=== PATIENT | female | born 1955 | race African-American/Black ===

== ENCOUNTER 2017-11-19 00:55 | Inpatient (IN) | payer MEDICAID ==
[~2017-11-19] VITALS: Ht 161.3 cm; Wt 84.2 kg
--- NOTE | ~2017-11-19 | WRIGHTHP ---
[place], [place] PATIENT HISTORY AND PHYSICAL EXAM [id number] UNIT #: [id number] ROOM: 311 DOCTOR: ELOISA HARDY MD BIRTHDATE: [birth year] DOS: 11/19/2017 CHIEF COMPLAINT: "Oh Dr. Hardy, things were just really bad there." SUMMARY OF THE VISIT: This is a 62-year-old black female who is a resident of [facility]. The patient has a lengthy history of schizophrenia. Most recently, she was seen at the facility and had her Seroquel discontinued in lieu of Risperdal because of worsening mood lability and psychosis. Following this change, she continued to decompensate. She has become increasingly delusional and paranoid. She believes that people there are out to get her. She has made significant threats herself that she will hurt other people. There is also some concern that she is deliberately attempting to get to the hospital to get to another female resident at that facility that is also admitted to the hospital here. She has become so labile and so out of control that the staff there feared for her safety and the safety of others. She was admitted now to rule out organic factors, to stabilize on medication, to engage in individual and borden milieu activity with the ultimate plan to return back to [facility] or the least restrictive environment when psychiatrically stable. PAST MEDICAL HISTORY: Remarkable for allergies to CODEINE, PENICILLIN, and SULFA. MENTAL STATUS: The patient is alert and oriented to person, place and very approximate to time. Mood is very labile. She is nearly pressured. She is interruptible but she does tend to be very circumstantial if not frankly tangential in her thinking. She requires a great deal of redirection to keep her on target. She is grossly delusional and paranoid. Memory for the most part is intact with some significant time gaps. DIAGNOSIS: Schizoaffective disorder. PLAN: I have discontinued her Risperdal in lieu of Invega. After I know she has tolerated this well, I will load her with Invega Sustenna hoping to improve compliance and lessen the potential for side effects. Her serum ammonia level upon admission was mildly elevated at 50. I will start her on lactulose 20 grams twice a day and recheck a level in a few days, attempt to engage in individual and borden milieu activity with the plan then to return to [facility] or the least restrictive environment when stable. [place], [place] PATIENT HISTORY AND PHYSICAL EXAM NAME: CLIFF BENSON UNIT #: [id number] ROOM: 311 DOCTOR: ELOISA HARDY MD BIRTHDATE: [birth year] ELOISA HARDY MD CM:HISPHYS:PATIENT HISTORY AND PHYSICAL EXAMINATION 8 1 ELOISA HARDY MD 11/19/17831 interface
--- NOTE | ~2017-11-19 | PR ---
[place], [place] PROGRESS NOTE [id number] #: [id number] ROOM: 317 DOCTOR: Nanette MCCAULEY,FLORENCIA BIRTHDATE: [birth year] DOS: 11/25/2017 PSYCHIATRIC PROGRESS NOTE SUBJECTIVE: Patient seen and spoke with the staff. Per staff, patient was up all night, internally stimulated, paranoid, wants multiple outfits to put on. Patient was pleasant and cooperative. She was in her room. She was talking to herself. When I asked her how she is doing, she says that she is doing well. She also then went on to talk about the fact that her son told her not to fuss or curse at the staff. She said that she is not going to do that anymore. She is taking her medication regularly and denied any side effect from the medication also. MENTAL STATUS EXAMINATION: Pleasant, cooperative. Described her mood as "fine." Affect, mood congruent, broad. Thought process disorganized at times. She denied auditory or visual hallucination, but seems responding to stimuli. She is delusional, paranoid. She denies suicidal ideation, intent or plan. She also denied homicidal ideation, intent or plan. Insight and judgment impaired. ASSESSMENT: 1. Schizophrenia, chronic, paranoid type. 2. Rule out schizoaffective disorder. PLAN: 1. Continue current medication and care. 2. Continue redirection. 3. Encourage activity and groups. 4. Final medication management and discharge plan by the regular team. FLORENCIA MCCAULEY MD CM:PNVERO 29 [phone] Nanette MCCAULEY 11/25/17 2328 interface
--- NOTE | ~2017-11-19 | PR ---
[place], [place] PROGRESS NOTE NAME: CLIFF BENSON UNIT #: [id number] ROOM: 311 DOCTOR: ELOISA TROTTER MD BIRTHDATE: [birth year] DOS: 11/20/2017 CHIEF COMPLAINT: "Come here and sit with me after I say my prayer." SUMMARY OF THE VISIT: The patient was interviewed first in the hallway and then she let us her wheelchair into the dining area where she sat and had a conversation with myself and the medical student that was rounding with me. The patient continues to be intrusive and rather loud. She is nearly pressured, but she is interruptible. She does tend to be somewhat tangential in her thinking and flips from topic to topic. She was pleasant, however, and did not engage in any type of agitation, profanity, streams of conversation or anything negative in that regard. She does report tolerating her current medication regimen well and notes no side effects. MENTAL STATUS: She is alert and oriented with some mild time gaps. Mood does seem to be trending towards euthymia. Affect is much more appropriate. There is no jannette, but there is jazzy hypomania. There are no overt auditory or visual hallucinations. Short-term memory has mild gaps. PLAN: Her valproic acid level is therapeutic at 86.2, so I will maintain her current Depakote dosing. She is tolerating the Invega well and in the past has tolerated Risperdal well without any incident. I will therefore attempt to load her with Invega Sustenna to go with the Haldol Decanoate so that she does not have to take oral meds in the future. This should greatly improve compliance and lessen the potential for side effects. We will engage in individual and borden milieu activity with the ultimate plan to return to [facility] when psychiatrically stable. ELOISA TROTTER MD CM:PNTRANS [id number] ELOISA TROTTER MD 11/20/17 0849 interface
--- NOTE | ~2017-11-19 | PR ---
[place], [place] PROGRESS NOTE [id number] UN[facility] #: [id number] ROOM: 317 DOCTOR: Nanette MCCAULEY,FLORENCIA BIRTHDATE: [birth year] DOS: 11/24/2017 SUBJECTIVE: The patient seen and spoke with the staff. Per staff, the patient is still delusional and paranoid. Takes her medication regularly, very talkative, but easily redirectable. The patient was pleasant and cooperative. She said that she is doing well. She talked about her desire to go home. She then went to her room and started showing me cream that she uses for her feet. She denied any side effect from the medication. She denied being depressed, hopeless or helpless. She reported good sleep and appetite. MENTAL STATUS EXAMINATION: The patient was pleasant and cooperative. Described her mood as "fine." Affect, mood congruent, labile. Thought process, goal directed with some flight of ideas, loosening of association. She denied auditory or visual hallucination. She is still delusional or paranoid. She denied suicidal ideation, intent or plan. She also denied homicidal ideation, intent or plan. Insight and judgment impaired. ASSESSMENT: 1. Schizophrenia, chronic paranoid type. 2. Rule out schizoaffective disorder. PLAN: 1. Continue current medication and care. 2. Encourage activity and groups. 3. Continue redirection and supportive care. FLORENCIA MCCAULEY MD CM:BROOKLYN [phone] Nanette MCCAULEY 11/24/17 2348 interface
--- NOTE | ~2017-11-19 | CON ---
[place], [place] REPORT OF CONSULTATION NAME: CLIFF BENSON UNIT #: [id number] ROOM: 311 DOCTOR: KATTY ORTEGA ED.D (MIRIAN) BIRTHDATE: [birth year] DOS: 11/19/2017 HISTORY OF PRESENT ILLNESS: The patient is a 62-year-old female referred by Dr. Trotter for competency evaluation. At the present time, this patient is on the [facility] at [facility]. She is and has 6 children. Several of her sons are quite helpful and do frequently visit her at [facility] in [place], [place] where the patient resides. She has lived at [facility] for quite some time. Her family physician is Dr. Robin and her medical history is pertinent for paranoid schizophrenia, diabetes mellitus, hypertension, osteoporosis. Her medications include Invega, lactulose, simvastatin, insulin, metformin, losartan, hydrochlorothiazide and Depakote. She does smoke, but otherwise denies any significant substance abuse issues. This patient was awake, alert and oriented to person, place and time. She indicated she is at [facility] and stated it is 11/19/2017. She knew Andrew Jiang is the vice president quality improvement and had no difficulty with current events whatsoever. Her short and long-term memory appear to be relatively intact. She did become quite agitated at [facility] and was pink slipped to [facility] for psychiatric care. She is doing better at this time, but she is still somewhat delusional. She does decompensate at times and does have to be rehospitalized. Since she is under a pink slip, there is a 72-hour hold on this patient and hopefully she will be psychiatrically stable at that time and can be transferred back to the long-term care facility. If not and it is necessary, I will do a guardianship at that time, but at the present time, the facility stated she does not have difficulty making medical decisions most of the time, other than when she decompensates psychiatrically. I did suggest that she would benefit from having a power of personal injury attorney for healthcare, but the training development director at [facility], Efren, indicated she was reluctant to give her sons power of personal injury attorney because she is somewhat paranoid. I will contact hospital again on Sunday of this week to determine whether or not she does need a guardianship at that time. At the present time, I would recommend against it. I did discuss this at length with Dr. Trotter and also with nursing services on the Behavioral Health Unit. DIAGNOSIS: Paranoid schizophrenia -- paranoid type. RECOMMENDATIONS: In my opinion, this patient does not need a guardianship at this time; however, her if her condition does not improve, guardianship may be necessary. Thank you very much for this consult. [place], [place] REPORT OF CONSULTATION NAME: CLIFF BENSON UNIT #: [id number] ROOM: [facility] DOCTOR: KATTY ORTEGA ED.D (MIRIAN) BIRTHDATE: [birth year] KATTY ORTEGA ED.D CM:CONSTR:REPORT OF CONSULTATION 1645 11/19/17 2254 interface ELOISA TROTTER MD
--- NOTE | ~2017-11-19 | DS ---
[place], [place] DISCHARGE SUMMARY [id number] UNIT #: [id number] ROOM: 317 DOCTOR: ELOISA HARDY MD BIRTHDATE: [birth year] DOS: 11/26/2017 CHIEF COMPLAINT: "Oh, Dr. Hardy, things were just really bad there." HISTORY OF PRESENT ILLNESS: This is a 62-year-old black female who is a resident of [facility]. The patient has a very lengthy history of schizophrenia. Most recently, she was seen at the facility and her Seroquel was discontinued in lieu of Risperdal because of worsening mood lability and psychosis. Following this change, she continued to decompensate and has become increasingly delusional and paranoid. She believes that people that are there are trying to get at her. She has made significant threats to hurt others before they hurt her. Because her mood was so labile and she was such a significant risk to harm self and others, she was admitted to the U to further rule out organic factors, to stabilize on medication, to engage in individual and borden milieu activity, returning back to [facility] when stable. PAST MEDICAL HISTORY: Remarkable for allergies to CODEINE, PENICILLIN AND SULFA. SUMMARY OF HOSPITAL COURSE: The patient was admitted to the unit where she was continued on Risperdal briefly, which was then switched over to Invega. Her serum ammonia was mildly elevated upon admission at 50, so lactulose 20 grams twice daily was started and gradually increased. Depakote and lithium were both utilized simultaneously to act as a mood stabilizer. She was very hyperverbal and intrusive from the start. These did seem to impact positively on her mood stability, as she became much more redirectable and able to engage in reasonable conversation that was neither pressured, nor circumstantial. She tolerated the addition of the Invega, the lithium and the Depakote well, exhibiting no sedation, somnolence, EPS or tardive dyskinesia. She had improved sufficiently to return back to [facility] where I will follow her upon her readmission there. MENTAL STATUS AT DISCHARGE: The patient is alert and oriented. Mood does seem to be still somewhat labile, but this is a baseline for her. There is no symptom suggestive of depression. There is no jazzy jannette. There was no gross psychosis. For the most part memory was intact. FINAL DIAGNOSIS: Schizoaffective disorder. DISPOSITION: The patient will return to [facility]. I will follow her psychiatrically upon her admission there. All of her prescriptions have been e scribed to [facility], which is an institutional pharmacy. [place], [place] DISCHARGE SUMMARY NAME: CLIFF BENSON UNIT #: [id number] ROOM: 317 DOCTOR: ELOISA HARDY MD BIRTHDATE: [birth year] ELOISA HARDY MD CM:DISCHCANDY 0948 1005 ELOISA HARDY MD 11/26/17 1004 interface
[2017-11-19] MEDS ORDERED: HALDOL DEC100 MG/1 M IM (01:08)
[2017-11-19] MEDS ORDERED: DEPAKOTE ER500 MG PO (01:09)
[2017-11-19] MEDS ORDERED: RISPERDAL1 M1 PO (01:10)
[2017-11-19] MEDS ORDERED: RISPERDAL2 M1 PO (01:11)
[2017-11-19] MEDS ORDERED: LANTUS SOL100 UNIT/1 SQ ×2 (01:16)
[2017-11-19] MEDS ORDERED: DAILY VITAMIN1 EAC1 PO (01:26)
[2017-11-19] MEDS ORDERED: ZOCOR10 MG PO (01:27)
[2017-11-19] MEDS ORDERED: LOSARTAN POTASS50 M1 PO (01:28)
[2017-11-19] MEDS ORDERED: HYDROCHLOROTHIA25 M1 PO (01:30)
[2017-11-19] MEDS ORDERED: CALCIUM500 M1 PO (01:31)
[2017-11-19] MEDS ORDERED: FEROSUL325 MG PO (01:32)
[2017-11-19] MEDS ORDERED: LACTULOSE10 GM/151 PO (01:32)
[2017-11-19] MEDS ORDERED: METFORMIN1000 MG PO (01:33)
[2017-11-19] MEDS ORDERED: GERI-TUSSI100 MG/5 M PO (01:37)
[2017-11-19] MEDS ORDERED: TRAMADOL HCL50 MG PO (01:38)
[2017-11-19 03:36] VITALS: BP 159/80
[2017-11-19 04:40] LABS: BILIRUBIN NEGATIVE (NEGATIVE); BLOOD NEGATIVE (NEGATIVE); CLARITY CLEAR (CLEAR); COLOR YELLOW (YELLOW); GLUCOSE NEGATIVE (NEGATIVE); KETONE NEGATIVE (NEGATIVE); LEUKO ESTERASE NEGATIVE (NEGATIVE); NITRITE NEGATIVE (NEGATIVE); SPECIFIC GRAVITY <= 1.005 (1.005-1.030); UROBILINOGEN 0.2 E.U./dl (0.2-1.0)
[2017-11-19 05:28] LABS: WBC 0-2 wbc/hpf (0-5)
[2017-11-19 07:39] LABS: BASO % 0.3 % (0.0-1.0); EOS # 0.1 10*3/uL (0.0-0.4); EOS % 0.7 % (1.0-4.0); HEMOGLOBIN 11.6 g/dl (12.0-16.0); LYMPH # 4.4 10*3/uL (1.3-4.4); LYMPH % 49.7 % (27.0-41.0); MEAN CELL VOLUME 76.1 fl (81.0-99.0); MEAN CORPUSCULAR HGB 24.5 pg (27.0-31.0); MEAN CORPUSCULAR HGB CONC 32.2 g/dl (33.0-37.0); MEAN PLATELET VOLUME 10.9 fl (9.6-12.3); MONO # 0.7 10*3/uL (0.1-1.0); MONO % 8.3 % (3.0-9.0); NEUT # 3.6 10*3/uL (2.3-7.9); NEUT % 40.7 % (47.0-73.0); PLATELET COUNT AUTOMATED 201 10*3/uL (130-400); RED BLOOD COUNT 4.73 10*6/uL (4.10-5.10); RED CELL DISTRI WIDTH 16.1 % (0-14.5); WHITE BLOOD COUNT 8.8 10*3/uL (4.8-10.8)
[2017-11-19 08:02] VITALS: BP 120/66
[2017-11-19 08:09] LABS: ALBUMIN 3.3 gm/dl (3.1-4.5); BUN 7 mg/dl (7-24); CHLORIDE 106 mmol/L (98-107); POTASSIUM 3.9 mmol/L (3.5-5.1); SODIUM 142 mmol/L (136-145)
[2017-11-19 08:19] LABS: ALKALINE PHOSPHATASE 71 U/L (45-117); CHOLESTEROL 59 mg/dL (<200); CREATININE 0.95 mg/dL (0.55-1.02); HDL CHOLESTEROL 29 mg/dl (40-60); LDL CHOLESTEROL 15 mg/dL (9-159); SGOT/AST 17 IU/L (3-35); SGPT/ALT 23 U/L (12-78); TOTAL PROTEIN 6.9 gm/dL (6.4-8.2); TRIGLYCERIDES 74 mg/dl (<150); VALPROIC ACID (DEPAKENE) 86.2 ug/ml (50-100); VLDL CHOLESTEROL 15 mg/dL (6-40)
[2017-11-19 10:26] LABS: VITAMIN D, 25-HYDROXY 17.6 ng/mL (30-100)
[2017-11-19 20:00] VITALS: BP 141/70
[2017-11-20 08:42] VITALS: BP 136/70
[2017-11-20 20:13] VITALS: BP 134/63
[2017-11-21 07:55] VITALS: BP 144/80
[2017-11-21 20:00] VITALS: BP 121/65
[2017-11-22 08:02] VITALS: BP 149/61
[2017-11-22 20:45] VITALS: BP 142/73
[2017-11-23 08:05] VITALS: BP 145/72
[2017-11-23 20:00] VITALS: BP 107/61
[2017-11-24 08:12] VITALS: BP 136/82
[2017-11-24 19:58] VITALS: BP 120/62
[2017-11-25 08:06] VITALS: BP 122/80
[2017-11-25 20:00] VITALS: BP 123/62
[2017-11-26 08:12] VITALS: BP 126/60
[2017-11-26] MEDS ORDERED: LACTULOSE20 GM/30 M PO (09:43)
[2017-11-26] MEDS ORDERED: PALIPERIDONE ER6 MG PO (09:43)
[2017-11-26] MEDS ORDERED: LITHIUM CARBON450 M1 PO (09:43)
[2017-11-26] MEDS ORDERED: HALOPERIDO100 MG/1 M IM (09:43)
[2017-11-26] MEDS ORDERED: DIVALPROEX SOD500 MG PO (09:43)
== END 2017-11-26 16:21 | DRG 885 ==
LOC: 3N 00:55
PROVIDERS: Psychiatry & Neurology Psychiatry
DX: F20.0 Paranoid schizophrenia (principal); E11.65 Type 2 diabetes mellitus with hyperglycemia; I10 Essential (primary) hypertension; D50.9 Iron deficiency anemia, unspecified; Z88.0 Allergy status to penicillin; Z88.5 Allergy status to narcotic agent; Z88.2 Allergy status to sulfonamides; Z79.4 Long term (current) use of insulin

== ENCOUNTER 2018-11-19 14:26 | Inpatient (IN) | payer MEDICAID ==
[~2018-11-19] VITALS: Ht 160 cm; Wt 175.0 kg
--- NOTE | ~2018-11-19 | PR ---
[place], [place] PROGRESS NOTE NAME: CLIFF BENSON UNIT #: [id number] ROOM: 312 DOCTOR: ELOISA TROTTER MD BIRTHDATE: [birth year] DOS: 11/25/2018 CHIEF COMPLAINT: "Oh, I had a pretty good weekend, how are you?" SUMMARY OF THE VISIT: The patient was interviewed as she was finishing her breakfast. She reported to me that she had a good weekend, other than not sleeping well last night, because she and her roommate had issues with somebody else in the hallway. She does seem to be tolerating the combination of the Invega Sustenna and Haldol Decanoate well. I do not see sedation or somnolence, nor do I see tardive dyskinesia or extrapyramidal symptoms. Overall, her thinking is much clear and goal directed. There is less rambling and there is also little to no psychotic symptoms. MENTAL STATUS: She is alert and oriented to person, place, not to time. There are gaps here. Mood does seem to be more euthymic. Affect is more appropriate. There is no hypomania or jannette. There are no gross psychotic symptoms. Short term memory does have gaps. PLAN: I will renew her p.r.n. Ativan should she require intervention. I will augment now the Exelon patch with Namenda 5 mg a day and plan to titrate this up accordingly. We will continue to engage her in individual and borden milieu activities, returning to the least restrictive environment when psychiatrically stable. ELOISA TROTTER MD CM:PNTRANS 0900 1016 ELOISA TROTTER MD 11/25/18 1017 interface
--- NOTE | ~2018-11-19 | PR ---
[place], [place] PROGRESS NOTE NAME: CLIFF BENSON UNIT #: [id number] ROOM: 312 DOCTOR: ELOISA TROTTER MD BIRTHDATE: [birth year] DOS: 11/26/2018 INTERVAL NOTE CHIEF COMPLAINT: "Can't you get me back to [place] today so I can have a cigar." SUMMARY OF THE VISIT: The patient was interviewed as she was sitting in the dining area. She engaged readily in very appropriate conversation. She still is somewhat flighty and disjointed, but overall she is much more pleasant and cooperative. There is less bizarre talk and less delusional talk noted. Outwardly, she is not exhibiting any sedation, somnolence, extrapyramidal symptoms or tardive dyskinesia. MENTAL STATUS EXAMINATION: She is alert and oriented with some time gaps. Mood does seem to be strongly trending towards euthymia. Affect is much more appropriate. There is no jannette, hypomania or gross psychosis noted. Short-term memory continues to have some gaps, but otherwise she is intact. PLAN: I will maintain her current psychotropic and at this time increase her Namenda from 5 mg daily to 5 mg twice daily as it augments the effectiveness of the Exelon capsules, which are at 6 mg twice daily. Continue to engage in individual and borden milieu activity, returning to the least restrictive environment when psychiatrically stable. ELOISA TROTTER MD CM:PNTRANS 0925 0048 ELOISA TROTTER MD 11/27/18 0049 interface
--- NOTE | ~2018-11-19 | PR ---
[place], [place] PROGRESS NOTE [id number] UN[facility] #: [id number] ROOM: 312 DOCTOR: ELOISA HARDY MD BIRTHDATE: [birth year] DOS: 11/27/2018 CHIEF COMPLAINT: "Hey, good morning, Dr. Hardy, I get my allowance on Sunday." SUMMARY OF THE VISIT: The patient was interviewed in the hallway and then later in her room. She engaged readily in pleasant superficial conversation. She was fairly goal directed and was not tangential or fragmented in her thinking. She was fixated on returning back to [place] in time to get her allowance and stated that overall she is feeling much better. She does seem to be sharper and does seem to be remembering things better. There is no outward symptoms of tardive dyskinesia, extrapyramidal symptoms, sedation or somnolence. MENTAL STATUS: She is alert and oriented with time gaps. Mood does seem to be strongly trending towards euthymia. Affect is more appropriate. There is no jannette, hypomania or gross psychosis. Memory does have gaps. PLAN: I will maximize out her dose of Namenda, bringing it to 10 mg b.i.d. Maintain her other psychotropics, continue to engage in individual and borden milieu activity, returning to the least restrictive environment when psychiatrically stable. ELOISA HARDY MD CM:PNTRANS 1001 1149 ELOISA HARDY MD 11/27/18 1149 interface
--- NOTE | ~2018-11-19 | PR ---
[place], [place] PROGRESS NOTE NAME: CLIFF BENSON UNIT #: [id number] ROOM: 312 DOCTOR: ELOISA HARDY MD BIRTHDATE: [birth year] DOS: 11/22/2018 CHIEF COMPLAINT: "Oh, Dr. Hardy, you are going to be able to get me with my daughter in [place], sorry for them." SUMMARY OF THE VISIT: The patient was interviewed as she was sitting, eating her breakfast with a male peer. She engaged readily in conversation. She still is somewhat manicky hypomanic and flighty, but she is much more redirectable. She has been more cooperative with staffing and has been taking her medication on a better, more consistent basis. Outwardly, she is not exhibiting any sedation, somnolence, extrapyramidal symptoms or tardive dyskinesia. MENTAL STATUS: She is alert and oriented. Mood does seem to be more euthymic. Affect more appropriate. There is still residual hypomania, still residual mandaen preoccupation and psychosis. Memory does have some mild gaps. PLAN: I will maximize her Exelon capsules to 6 mg b.i.d. I will consider adding either lithium or Depakote, but will need to check with her long-term care facility to see if she has had any positive or adverse reaction to either of these medications. We will engage in individual and borden milieu activity, returning then to the least restrictive environment when psychiatrically stable. ELOISA HARDY MD CM:PNTRANS 5 7 ELOISA HARDY MD 11/22/1838 interface
--- NOTE | ~2018-11-19 | PR ---
[place], [place] PROGRESS NOTE [id number] UN[facility] #: [id number] ROOM: 312 DOCTOR: ELOISA HARDY MD BIRTHDATE: [birth year] DOS: 11/21/2018 INTERVAL NOTE CHIEF COMPLAINT: "I will do whatever you want Dr. Hardy." SUMMARY OF THE VISIT: The patient was interviewed as she was sitting in the dining area. She was attempting to give me a calendar that was religiously based. I did politely refused stating that it was too nice of a calendar to give away. She was very much more engaging in treatment this morning and stated that if I wanted her to take another injection she would, she very correctly mention that she had received an Invega Sustenna on 11/15/2018. I explained to her that I wanted the monthly dose to be increased and she nodded in approval. MENTAL STATUS: She is alert and oriented. There are some time gaps, but overall she is very intact. Mood does seem to be trending towards euthymia. She is still rather tangential and flighty but is much more redirectable. There was no agitation or aggression. There was no voiced paranoia or delusions. Memory has some gaps, but is otherwise intact. PLAN: I will go ahead and order her Invega monthly dose to be 234 mg IM every month, starting on 12/16/2017 and every month thereafter. We will maintain her Haldol Decanoate at this point every 30 days as well, although this may need to be short and to every 21 days to prevent a relapse in her psychosis. Meanwhile, I will continue to monitor for risk and benefits, monitoring for the development of extrapyramidal symptoms or tardive dyskinesia, none of which are present currently. We will continue to engage her in individual and borden milieu activity with the plan to return to the least restrictive environment when psychiatrically stable. ELOISA HARDY MD CM:PNTRANS 1151 1218 ELOISA HARDY MD 11/21/18 1219 interface
--- NOTE | ~2018-11-19 | CON ---
[place], [place] REPORT OF CONSULTATION NAME: [facility]SON [id number] UN[facility] #: [id number] ROOM: 312 DOCTOR: SCOTTY, PHD SAWANT BIRTHDATE: [birth year] DOS: 11/21/2018 HISTORY OF PRESENT ILLNESS: The patient is a 63-year-old female referred by Dr. Hardy for a competency evaluation. At the present time, the patient is on the [facility] at [facility]. She was guarded with respect to her history, but records indicate she has 6 children. She is a resident at [facility] in [place]. There is no history of current drug, alcohol or tobacco use. She does have a past history of marijuana use. PAST MEDICAL HISTORY: Bipolar disorder, cirrhosis of the liver, hypertension, hyperlipidemia, diabetes, iron deficient anemia, osteoporosis and vascular dementia. MEDICATIONS: Invega Sustenna, Haldol, Decanoate, Glucophage, Lantus, Cozaar, Feosol, Humalog, Cephalex, Exelon, Geodon, Klonopin, Macrodantin, vancomycin, Ativan. The patient was awake, alert and oriented to person, place, month and year. She could name the president as Apolinar. She was guarded and somewhat paranoid, but more cooperative than yesterday. Mood was irritable and affect was restricted. She declined to answer most questions about her history and knowledge about her medications and health history. I spoke with Helen, the nursing cooler service supervisor at her residential who stated that the patient has been decompensating over the past 3 months and that she will sometimes have more lucid days than others. She stated that the patient has been able to have productive conversations with her physicians about her medications and question why she is on certain medications. I will follow up with the patient on Sunday to continue to assess her level of competency. DIAGNOSIS: Schizoaffective, bipolar type. PLAN: I will follow up with the patient on Sunday to continue to assess for the need for guardianship. Thank you very much for this consult. Merlyn Tomlin, PhD CM:CONSTR:REPORT OF CONSULTATION 1619 11/22/18 0126 interface
--- NOTE | ~2018-11-19 | PR ---
[place], [place] PROGRESS NOTE NAME: CLIFF BENSON UNIT #: [id number] ROOM: 312 DOCTOR: PHD JESE TOMLIN BIRTHDATE: [birth year] DOS: 11/20/2018 I attempted to evaluate the patient. She was very irritable and guarded and declined to speak with me. I will follow up tomorrow. Merlyn Tomlin PhD CM:BROOKLYN [id number] PHD JESE TOMLIN 11/21/18 0036 interface
--- NOTE | ~2018-11-19 | WRIGHTHP ---
[place], [place] PATIENT HISTORY AND PHYSICAL EXAM [id number] UN[facility] #: [id number] ROOM: 312 DOCTOR: ELOISA TROTTER MD BIRTHDATE: [birth year] DOS: 11/20/2018 INITIAL PSYCHIATRIC EVALUATION CHIEF COMPLAINT: "I need me some Kwell Shampoo and I need to find a new place to stay." HISTORY OF PRESENT ILLNESS: This is a 63-year-old black female well known to me from multiple psychiatric admissions here to the [facility] as well as her stay at several long-term care facilities within the [facility]. The patient most recently has been residing at [facility] in [place], [place]. The patient has become increasingly psychotic there and labile, has been very agitated and aggressive. She has been both verbally and physically aggressive towards staff and other residents, putting herself and them at a significant risk of harm. She is frankly manic as well, believing that she has won millions of dollars through the [employer] and is being ripped off by the bank or by the facility, social work coordinator at [facility]. The patient has been episodically noncompliant with oral meds, but has been receiving injections of Haldol Decanoate and Invega Sustenna. Despite these injections, the patient has decompensated and is exhibiting significant psychosis and mood lability. She is admitted now to rule out organic factors, to stabilize on medication and to return to the least restrictive environment when psychiatrically stable. PAST MEDICAL HISTORY: Remarkable for a lengthy history of bipolar disorder, cirrhosis of the liver, hypertension, hyperlipidemia, diabetes, iron deficiency anemia, osteoporosis and vascular dementia. SOCIAL HISTORY: The patient does not currently drink alcohol, use illicit drugs or smoke tobacco. However, she does endorse smoking marijuana since the age of 12. STRENGTHS: Good verbal skills, ambulatory. WEAKNESS: Long-term severe chronic mental health issues and poor coping skills. MENTAL STATUS: The patient is alert and oriented with some time gaps. Mood is labile and she is rather expansive. She jumps from topic to topic and derails herself easily in conversation. There is an air of hypomania if not jazzy jannette. She is rather grandiose in some of her thinking. She also is mildly paranoid regarding the staff at [facility]. Memory does have some gaps. DIAGNOSIS: Schizoaffective disorder, bipolar type. PLAN: At this point in time, she most recently received an Invega Sustenna injection of 156 mg several days ago. Despite receiving these injections, the patient has decompensated. I will reload with Invega Sustenna 156 mg IM today. I will then make her maintenance dose of Invega Sustenna 234 mg a month and change her dose of the Haldol Decanoate to be given every 21 days rather than every 30 days. We will monitor for EPS, tardive dyskinesia and other side [place], [place] PATIENT HISTORY AND PHYSICAL EXAM NAME: CLIFF BENSON UNIT #: [id number] ROOM: 312 DOCTOR: ELOISA TROTTER MD BIRTHDATE: [birth year] effects, engage in individual and borden milieu activity, returning then to the least restrictive environment when psychiatrically stable. ELOISA TROTTER MD CM:HISPHYS:PATIENT HISTORY AND PHYSICAL EXAMINATION [phone] ELOISA TROTTER MD 11/20/18 1028 interface
--- NOTE | ~2018-11-19 | DS ---
[place], [place] DISCHARGE SUMMARY NAME: [facility]IFF BENSON [facility] [id number] UNIT #: [id number] ROOM: 312 DOCTOR: ELOISA TROTTER MD BIRTHDATE: [birth year] DOS: 11/28/2018 CHIEF COMPLAINT: "I need me some quo shampoo and I need to find a new place to stay". HISTORY OF PRESENT ILLNESS: This is a 63-year-old black female known to me from multiple psychiatric admissions here to the [facility] as well as her stay at several long-term facilities within the [facility]. The patient most recently was residing at [facility] [place] in [place], [place]. The patient had become increasingly psychotic there and very labile, easily agitated and aggressive. She has been both verbally and physically aggressive towards staff and other residents putting herself and them at significant risk of harm. The patient does believe that she won the [employer] and has had that money stolen from the bank by the facility and the family welfare social work professor at [place]. She is admitted now to rule out organic factors and attempt to stabilize on medication. SUMMARY OF HOSPITAL COURSE: The patient most recently had been receiving Haldol Decanoate 300 mg monthly along with Invega Sustenna 156 mg monthly. She is so grossly psychotic and delusional. The use of 2 antipsychotics is warranted. She has maxed out the standard dose of the Haldol Decanoate. I did go ahead and reload her with an additional 156 mg of the Invega Sustenna and changed then her monthly dose to be 234 mg monthly to be able to sustain efficacy during the month. She did tolerate the additional Invega well. She did not exhibit any sedation, somnolence, extrapyramidal symptoms, or other side effects and it did break the psychosis and stabilize her mood. She improved gradually to the point where she was no longer hypomanic or manic. She was no longer psychotic. She was able to attend to her ADLs and able to attend to groups and other activities well. She returned back to [place]. MENTAL STATUS AT DISCHARGE: The patient is alert and oriented with some minor time gaps. Mood does seem to be strongly trending towards euthymia. Affect is more appropriate. There is no jannette or hypomania. There is no gross psychosis. Memory did have gaps. FINAL DIAGNOSIS: Schizoaffective disorder, bipolar type. DISPOSITION: All of her prescriptions have been E-scribed to [facility]. The patient is returning to [facility] [place]. I will be the treating psychiatrist of record. At the time of her discharge, she was psychiatrically stable. There were no acute medical issues. [place], [place] DISCHARGE SUMMARY NAME: CLIFF BENSON UNIT #: [id number] ROOM: 312 DOCTOR: ELOISA TROTTER MD BIRTHDATE: [birth year] ELOISA RTOTTER MD CM:DISCHARG [id number] ELOISA TROTTER MD 11/28/18 1033 interface
--- NOTE | ~2018-11-19 | PR ---
[place], [place] PROGRESS NOTE [id number] UNIT #: [id number] ROOM: 312 DOCTOR: PHD JESE TOMLIN BIRTHDATE: [birth year] DOS: 11/25/2018 SUMMARY: I followed up with the patient for a competency evaluation. The patient was much more pleasant and cooperative today than she was last week. She was awake, alert and oriented to person, place and time. She can name the current president and had no problem with current events. She was able to complete 4 correct serial 7 subtractions. She denied any suicidal or homicidal ideations or plan. She does have a long mental health history with multiple mental health admissions. There was no evidence of short or long-term memory deficits. I spoke with her nursing sewing supervisor at her assisted last week who had stated that the patient is independent in self-care, bathing had makes her bad and changes her sheets on her own. She also stated that the patient can name her meds. The patient declined doing so today. My opinion, the patient is competent to make informed health care decisions; however, she would benefit from Healthcare power of station engineer, which was strongly recommended to her. She was agreeable and stated she would like her oldest son to be her healthcare power of station engineer. My opinion, the patient is competent to make informed health care decisions and would benefit from establishing health care p.o. Merlyn Tomlin, CM:BROOKLYN [phone] PHD JESE TOMLIN 11/26/18 0339 interface
[2018-11-19 14:26] VITALS: BP 129/63
[~2018-11-19 14:26] MED LIST: ATIVAN1 MG PO; CALCIUM500 M1 PO; CLONAZEPAM1 MG PO; DAILY VITAMIN1 EAC1 PO; DEPAKOTE ER500 MG PO; DEPAKOTE500 MG PO; DIVALPROEX SOD500 MG PO; FEROSUL325 MG PO; GERI-TUSSI100 MG/5 M PO; GLUCOPHAGE500 M1 PO; GLUCOSE GEL38 GM PO; HALDOL DEC100 MG/1 M IM; HALOPERIDO100 MG/1 M IM; HUMALOG100 UNIT/2 SC; HYDROCHLOROTHIA25 M1 PO; INVEGA SUSTENN156 MG IM; LACTULOSE10 GM/151 PO; LACTULOSE20 GM/30 M PO; LANTUS SOL100 UNIT/1 SQ; LITHIUM CARBON450 M1 PO; LOSARTAN POTASS50 M1 PO; MILK OF MA2400 MG/10 PO; PALIPERIDONE ER6 MG PO; RISPERDAL0.5 MG PO; RISPERDAL1 M1 PO; RISPERDAL2 M1 PO; TRAMADOL HCL50 MG PO; ZOCOR10 MG PO
[2018-11-19 15:23] LABS: BASO % 0.7 % (0.0-1.0); EOS # 0.1 10*3/uL (0.0-0.4); HEMOGLOBIN 11.2 g/dl (12.0-16.0); LYMPH # 1.5 10*3/uL (1.3-4.4); LYMPH % 25.3 % (27.0-41.0); MEAN CELL VOLUME 74.1 fl (81.0-99.0); MEAN CORPUSCULAR HGB CONC 31.1 g/dl (33.0-37.0); MEAN PLATELET VOLUME 9.2 fl (9.6-12.3); MONO # 0.4 10*3/uL (0.1-1.0); MONO % 7.4 % (3.0-9.0); NEUT # 3.8 10*3/uL (2.3-7.9); NEUT % 65.3 % (47.0-73.0); PLATELET COUNT AUTOMATED 295 10*3/uL (130-400); RED BLOOD COUNT 4.86 10*6/uL (4.10-5.10); RED CELL DISTRI WIDTH 15.9 % (0-14.5); WHITE BLOOD COUNT 5.8 10*3/uL (4.8-10.8)
[2018-11-19 15:35] LABS: ACETAMINOPHEN (TYLENOL) < 5.0 ug/ml (10-30); BUN 13 mg/dl (7-24); CHLORIDE 109 mmol/L (98-107); CREATININE 0.97 mg/dL (0.55-1.02); POTASSIUM 4.1 mmol/L (3.5-5.1); SODIUM 139 mmol/L (136-145)
[2018-11-19 15:36] LABS: ETHYL ALCOHOL < 3.0 mg/dl (<3)
[2018-11-19 17:03] LABS: BILIRUBIN NEGATIVE (NEGATIVE); BLOOD NEGATIVE (NEGATIVE); CLARITY CLOUDY (CLEAR); COLOR YELLOW (YELLOW); GLUCOSE NEGATIVE (NEGATIVE); KETONE 1+ (NEGATIVE); LEUKO ESTERASE NEGATIVE (NEGATIVE); NITRITE NEGATIVE (NEGATIVE); PH 5.5 (5.0-9.0); SPECIFIC GRAVITY 1.025 (1.005-1.030); UROBILINOGEN 0.2 E.U./dl (0.2-1.0)
--- NOTE | 2018-11-19 17:09 | NUR ---
PT HAS BEEN COOPERATIVE, DID PROVIDE A URINE SAMPLE. SHE IS EATING DINNER NOW. NO CHANGE NOTED IN CONDITION,NO DISTRESS NOTED. LOAN [place]
[2018-11-19 17:13] LABS: BACTERIA 3+; EPITHELIAL CELLS 21-30; WBC 0-2 wbc/hpf (0-5)
[2018-11-19 17:20] LABS: URINE AMPHETAMINES < 1000 (1000ng/ml); URINE BARBITURATES < 200 (200ng/ml); URINE BENZODIAZEPINES > 200 (200ng/ml); URINE CANNABINOIDS (THC) < 50 (50ng/ml); URINE COCAINE < 300 (300ng/ml); URINE METHADONE < 300 (300ng/ml); URINE OPIATES < 300 (300ng/ml)
[2018-11-19 17:21] LABS: URINE PHENCYCLIDINE < 25 (25ng/ml)
[2018-11-19] MEDS ORDERED: CLONAZEPAM1 MG PO (17:42)
[2018-11-19] MEDS ORDERED: LACTULOSE10 GM/151 PO (17:44)
[2018-11-19] MEDS ORDERED: RIVASTIGMINE T4.5 M1 PO (17:48)
[2018-11-19] MEDS ORDERED: MACRODANTIN50 MG PO (17:49)
--- NOTE | 2018-11-19 17:50 | NUR ---
CLIFF BENSON a 63 year old F admitted via wheel chair from the ADMITTING as a emergency 72 hr. hold admission. Arrived on unit at 1750. ALLERGIES: CODEINE, PCN. Vital signs are: 96.8-80-16 100/50. The client signed the following forms with stated understanding: Authorization For The Release of Medical Information, Clothing List, Consent to Voluntary Admission and Hospitalization, Consent and Release Forms/Receipt of Rights, Acknowledgement of Advance Directive Information, Behavioral Health Consent Form, and Informed Consent of Medications. Admitted under the services of Dr. ROSE MARIE JIMENEZ,[facility]. A search was conducted and hazardous articles were removed. Client was oriented to the unit. HAYDEN HANLEY
--- NOTE | 2018-11-19 17:53 | NUR ---
VOICEMAIL MESSAGE LEFT FOR OFFBEARER SEWER PIPE AT [phone] RE: PT ADMISSION AND PINK SLIP.
[2018-11-19] MEDS ORDERED: TRILEPTAL150 MG PO (17:58)
[2018-11-19] MEDS ORDERED: VANCOCIN125 M1 PO (17:59)
--- NOTE | 2018-11-19 18:16 | NUR ---
SPOKE WITH DR. THEODORE AT [phone] THEODORE PLACED CONSULT UNDER ADVISED THAT DR. TROTTER WOULD LIKE THEM TO REVIEW THE LACTULOSE ORDER AND SHE ALSO HAS AN ORDER FOR VANCOMYCIN HCL 125 MG PO BID IF PT REFUSES LACTULOSE. NO FURTHER ORDERS AT THIS ITME.
[2018-11-19 18:19] VITALS: BP 100/50
--- NOTE | 2018-11-19 18:20 | NUR ---
SPOKE WITH , ADVISED THAT PT MANULA BP IS 100/50 APICAL PULSE IS 80. PT IS ASYMPTOMATIC, NO FURTHER ORDERS AT THIS TIME.
--- NOTE | 2018-11-19 19:40 | NUR ---
DR CAREY ON UNIT TO SEE PT FOR MEDICAL CONSULT.
[2018-11-19 19:56] VITALS: BP 110/60
--- NOTE | 2018-11-19 20:00 | NUR ---
Pt signed the following forms with stated understanding, Receipt of Rights & Behavioral Health Consent AZUL FRIAS
--- NOTE | 2018-11-19 22:36 | NUR ---
24 HR chart check completed.
--- NOTE | 2018-11-20 01:00 | NUR ---
PT HAS BEEN MOVING HERSELF AROUND IN A WHEEL CHAIR. MOOD IS DEPRESSED WITH UNDERLYING IRRITABILITY BUT SHE HAS BEEN CO-OPERATIVE. ALERT & ORIENTED X2. WAS COMPLIANT TAKING HS MEDICATIONS WHOLE. NO AGGRESSIVE BEHAVIOR. KEEPS TO HERSELF. HS BEDSIDE GLUCOSE WAS 316. RECEIVED COVERAGE. WILL CONTINUE TO MONITOR & PROVIDE WITH PHYSICAL ASSISTANCE & EMOTIONAL SUPPORT NEEDED.
--- NOTE | 2018-11-20 05:55 | NUR ---
PT HAS SLEPT PAST 2200.
--- NOTE | 2018-11-20 06:17 | NUR ---
REFUSED BLOODWORK THIS AM. REFUSED BEDSIDE GLUCOSE
--- NOTE | 2018-11-20 06:30 | NUR ---
REFUSED ROUTINE KLONOPIN
--- NOTE | 2018-11-20 07:48 | NUR ---
Nursing screen received and Occupational Therapy referral received. Thank you. Lyndsey Cui OTR/l
[2018-11-20 07:57] VITALS: BP 132/57
--- NOTE | 2018-11-20 08:15 | NUR ---
Treatment Plan meeting with Dr. Hardy, RN, AT, SW and Nurse Sexual Assault. Plan for discharge next week. Pt. Current Resident at [facility].
--- NOTE | 2018-11-20 09:10 | NUR ---
SPOKE WITH MILLIE AT DR. FAJARDO'S OFFICE RE:CONSULT FOR COMPETANCY D/T SEVERITY OF SCHIZOPHRENIA.
--- NOTE | 2018-11-20 09:29 | NUR ---
PERSONAL DAILY GOAL TRUST PT HAS JUST BEEN ADMITTED TO THE UNIT LAST NIGHT AND IS VERY GUARDED AND DISTRUSTFUL. PT WILL BE ENCOURAGED TO TRUST STAFF AND PEERS.
--- NOTE | 2018-11-20 10:00 | NUR ---
DR. VALLECILLO ON UNIT TO ASSESS PATIENT.
--- NOTE | 2018-11-20 10:21 | NUR ---
Spoke with Malorie at [facility]. Pt. is Long-Term Care at facility with bed hold. Pt. will return to [facility] at Discharge. Pt. is her own Person per Malorie and does not have POA or Guardian at this time.
--- NOTE | 2018-11-20 12:00 | NUR ---
AM GROUP/CURRENT EVENTS/FOCUS GROUP PT WAS PRESENT FOR THE BEGINNING OF GROUP AND HAD A HARD TIME DECIDING WHERE TO SIT AT THE GROUP TABLE. PT SAT AND BEGAN WORKING I MOVED A PEER IN A MARY CHAIR BESIDE HER. PT STATED, "I WANT TO MOVE FROM HERE. I DON'T LIKE WOMEN AND I DON'T WANT A WOMAN SITTING NEXT TO ME. THAT LADY THERE, WHEN I SAT DOWN BY HER, SHE KEPT MOVING CLOSER AND CLOSER TO ME AND I DON'T LIKE WOMEN AND I NEVER HAVE." PT WAS ENCOURAGED TO MOVE TO A TABLE BY HERSELF WHICH SHE DID. PT SHORTLY GOT UP AND LEFT THE ACITIVITY ROOM. PT DID NOT RETURN.
--- NOTE | 2018-11-20 13:21 | NUR ---
Introduced self to pt and discussed meeting later to complete PSA. Pt was in dining room and this proposal writer inquired about meeting to complete the PSA and pt stated you write this down "Miladys De Los Santos says it's none of your business but her own". When this proposal writer asked if she could call her son or family to get some information; pt said, "no". Therefore, PSA was completed with limited information from staff/chart due to these barriers.
--- NOTE | 2018-11-20 14:38 | NUR ---
Patient not available for Occupational Therapy as he is in group therapy session. Andres Cui OTR/L
--- NOTE | 2018-11-20 15:21 | NUR ---
PATIENT IS ALERT TO PERSON, PLACE, TIME AND SITUATION; ABLE TO VOICE NEEDS. MOOD IS IRRITABLE AND LABILE. REFUSES TO CONVERSATE WITH THIS NURSE STATING "WHY ARE YOU BOTHERING ME, I'M TOO BUSY FOR THIS. NO RESPONSE TO INTERNAL STIMULI, NO VOICED STATEMENTS OF HI/SI OR PAIN. PATIENT TOOK MORNING MEDICATIONS BUT ONLY TOOK ONE PILL OF EXELON, PROVIDED ONE ON ONE AND EDUCATION TO TAKE ALL OF MEDICATION. PATIENT HAS REFUSED BLOOD SUGAR CHECKS BY MILIEU. NURSE ATTEMPTING TO BUILD RAPPORT. PATIENT HAS ALLOWED THIS NURSE TO CHECK BLOOD SUGARS TODAY. PATIENT HAS INVEGA SUSTENNA 156MG DUE TODAY AND HAS REFUSED. DR TROTTER AWARE. REAPPROACH LATER TODAY. INDEPENDENT WITH ACTIVITIES OF DAILY LIVING; REQUIRING VERBAL CUEING. CONTINENT OF BOWEL AND BLADDER. SET UP FOR MEALS, INTAKES ARE GOOD WITH ADEQUATE FLUIDS. Q 15 MINUTE SAFETY CHECKS MAINTAINED. PATIENT PARTICIPATED IN MORNING GROUP, RESTING IN BED DURING SECOND GROUP. CONTINUE TO MONITOR MOOD AND MEDICATION COMPLIANT. PROVIDE ONE ON ONE AND REDIRECTION NEEDED.
--- NOTE | 2018-11-20 15:48 | NUR ---
PM GROUP/CREATIVE OUTLETS PT CHOSE NOT TO ATTEND AFTERNOON GROUP THERAPY. PT CHOSE TO STAY IN BED AND NAP
--- NOTE | 2018-11-20 15:50 | NUR ---
PATIENT BECOMING VERBAL AGGRESSIVE WHEN COMING UP AT NURSING STATION TO ASK TO USE THE PHONE. PATIENT RAISING VOICE, YELLING AT NURSE. PATIENT DENIED MAKING PHONE CALL AT THIS TIME DUE TO OUTBURST AND THREATENING NURSES. PATIENT ASKED TO TALK A WALK TO DE-ESCULATE. PATIENT SELF PROPED HERSELF IN WHEELCHAIR TO ROOM AT THIS TIME. SPACE PROVIDED AN EFFECTIVE.
--- NOTE | 2018-11-20 16:15 | NUR ---
Shift chart check completed.
--- NOTE | 2018-11-20 17:00 | NUR ---
PATIENT FINISHED WITH DINNER. PATIENT CALM DEMEANOR REQUESTING TO USE THE PHONE. CALL PLACE TO SON PER REQUEST, UNABLE TO LEAVE MESSAGE FOR PATIENT TO HAVE SON CALL BACK. P: PATIENT YELLING OUT, THREATENING NURSES. I: PROVIDE ONE ON ONE, REDIRECTION AND SPACE NEEDED R: EFFECTIVE P: CONTINUE TO PROVIDE REDIRECTION AND SPACE NEEDED DUING OUTBURST. PATIENT CONTINUE TO REFUSE INVEGA SUSTENNA INJECTION; STATING I JUST HAD THE SHOT, STATING "I'M NOT GETTING ANOTHER" PROVIDED ONE ON ONE AND EDUCATION. INEFFECTIVE. DR. TROTTER TO BE INFORM IN THE MORNING.
[2018-11-20 20:00] VITALS: BP 146/63
--- NOTE | 2018-11-20 23:16 | NUR ---
24 HR chart check completed.
--- NOTE | 2018-11-21 06:00 | NUR ---
PT HAS SLEPT PAST 2014 WITH 2 BRIEF AWAKENINGS TO GO TO THE BATHROOM INDEPENDENTLY.
--- NOTE | 2018-11-21 06:47 | NUR ---
AM BEDSIDE GLUCOSE 125
[2018-11-21 07:05] LABS: BASO % 0.4 % (0.0-1.0); EOS # 0.1 10*3/uL (0.0-0.4); EOS % 2.5 % (1.0-4.0); HEMATOCRIT 34.2 % (37.0-47.0); LYMPH # 2.1 10*3/uL (1.3-4.4); LYMPH % 44.4 % (27.0-41.0); MEAN CELL VOLUME 73.5 fl (81.0-99.0); MEAN CORPUSCULAR HGB 23.7 pg (27.0-31.0); MEAN CORPUSCULAR HGB CONC 32.2 g/dl (33.0-37.0); MEAN PLATELET VOLUME 10.6 fl (9.6-12.3); MONO # 0.5 10*3/uL (0.1-1.0); MONO % 11.3 % (3.0-9.0); NEUT # 1.9 10*3/uL (2.3-7.9); NEUT % 41.2 % (47.0-73.0); PLATELET COUNT AUTOMATED 303 10*3/uL (130-400); RED BLOOD COUNT 4.65 10*6/uL (4.10-5.10); RED CELL DISTRI WIDTH 15.7 % (0-14.5); WHITE BLOOD COUNT 4.7 10*3/uL (4.8-10.8)
[2018-11-21 07:34] LABS: ALBUMIN 3.3 gm/dl (3.1-4.5); BUN 11 mg/dl (7-24); CHLORIDE 113 mmol/L (98-107); CHOLESTEROL 75 mg/dL (<200); CREATININE 0.81 mg/dL (0.55-1.02); SGOT/AST 14 IU/L (3-35); SGPT/ALT 22 U/L (12-78); SODIUM 144 mmol/L (136-145); TRIGLYCERIDES 91 mg/dl (<150); VLDL CHOLESTEROL 18 mg/dL (6-40)
[2018-11-21 07:40] LABS: VITAMIN D, 25-HYDROXY 17.2 ng/mL (30-100)
[2018-11-21 07:43] LABS: ALKALINE PHOSPHATASE 85 U/L (45-117); HDL CHOLESTEROL 31 mg/dl (40-60); LDL CHOLESTEROL 26 mg/dL (9-159); TOTAL PROTEIN 6.6 gm/dL (6.4-8.2)
[2018-11-21 07:57] VITALS: BP 129/58
--- NOTE | 2018-11-21 08:30 | NUR ---
Treatment Plan meeting with Dr. Hardy, RN, AT, SW and Chart Calculator. Plan for discharge next week. Pt. to [facility].
--- NOTE | 2018-11-21 09:09 | NUR ---
PERSONAL DAILY GOAL SELF-EXPRESSION PT IS ABRASIVE AND ABRUPT IN COMMUNICATING NEEDS. PT WILL EXPLORE DIFFERENT MODES OF EXPRESSION
--- NOTE | 2018-11-21 10:43 | NUR ---
Physical Therapy referral received with screen completed after independence noted with function and ambulation while on BHU. Michelle Rojas, PT
--- NOTE | 2018-11-21 12:00 | NUR ---
INVEGA SUSTENNA 156MG IM GIVEN TO RIGHT DELTOID AT THIS TIME. PT ACCEPTED WILLINGLY AND TOLERATED WELL.
--- NOTE | 2018-11-21 12:08 | NUR ---
AM GROUP/INTERPERSOAL INTERACTIONS PT WAS PRESENT FOR GROUP AND PARTICIPATED IN GROUP DISCUSSION. PT EXHIBITED NO AGGRESSIVE OR AGITATED BEHAVIORS DURING GROUP. PT WAS LESS DEMANDING AND INTRUSIVE THIS MORNING.
--- NOTE | 2018-11-21 15:13 | NUR ---
HERE TO SEE PT AT THIS TIME.
--- NOTE | 2018-11-21 15:29 | NUR ---
STATES WILL REEVALUATE ON SUNDAY FOR COMPENTENCY.
--- NOTE | 2018-11-21 15:43 | NUR ---
PM GROUP/STRESS REDUCTION PT WAS PRESENT FOR GROUP AND ASKED "WHAT ARE WE GOING TO DO? CAUSE I WILL DECIDE IF I WANT TO STAY OR NOT DEPENDING ON WHAT WE DOING!" PT SAT FOR A WHILE, REFUSED TO PARTICIPATE, TRIED TO "PICK A FIGHT" WITH ANY STAFF THAT ENTERED THE ROOM AND THEN GOT UP AND LEFT. PT DID NOT RETURN.
--- NOTE | 2018-11-21 15:50 | NUR ---
REQUESTED THIS RN TO HAVE PATIENT SIGN IN VOLUNTARY ADMISSION. PT SIGNED VOLUNTARY CONSENT FOR ADMISSION AND TREATMENT AT THIS TIME.
--- NOTE | 2018-11-21 18:29 | NUR ---
P-PT HAS VOICED GRANDIOSE DELUSIONS THIS SHIFT REGARDING [employer]. PT ALSO EXHIBITING MILDLY MANIC BEHAVIOR SUCH REQUESTING STAFF TO MAKE MULTIPLE COPIES OF COLORING PAGES SO THAT SHE CAN HAND THEM OUT TO VARIOUS STAFF MEMBERS. I-REDIRECTED PATIENT DURING THESE PERIODS. REALITY PRESENTED. R-PT UNRECEPTIVE TO REALITY PRESENTATION AND REFUSES TO ACCEPT REALITY DURING 1:1'S WITH STAFF. PT EASILY REDIRECTS BACK TO HER ROOM OR DAY ROOM. PT HAS BEEN PLEASANT AND COOPERATIVE WITH STAFF THIS SHIFT. POSITIVE PEER INTERACTIONS NOTED. REQUIRES FREQUENT REDIRECTION. P-CONTINUE TO ENCOURAGE GROUPS AND REDIRECT NEEDED. PRESENT REALITY WHEN PT VOICING DELUSIONS.
--- NOTE | 2018-11-22 00:16 | NUR ---
24 HR chart check completed.
--- NOTE | 2018-11-22 05:53 | NUR ---
Patient slept approx. 8 1/2 hours throughout shift.
[2018-11-22 08:28] VITALS: BP 120/75
--- NOTE | 2018-11-22 08:30 | NUR ---
Treatment Plan meeting with Dr. Hardy, RN, AT, SW and Software Engineer Intern. Plan for discharge Next week. Pt. is LTC at [facility] and will return at discharge.
--- NOTE | 2018-11-22 09:55 | NUR ---
P-PT CAN BE INSTRUSIVE WITH STAFF AND PEERS. PT INTERRUPTS STAFF WHEN SPEAKING AND IS OFTEN TIMES DEMANDING. MILDLY MANIC THIS MORNING. REQUESTING STAFF TO MAKE HER MULTIPLE PHOTO COPIES OF COLORING PAGES. ALERT AND ORIENTED TO PERSON AND PLACE. ST/LT MEMORY DEFICITS AND CONFUSION NOTED. ABLE TO ANWSER STAFF APPROPRIATELY DURING 1:1 CONVERSATIONS THIS MORNING. USES W/C FOR MOBILITY NEEDED, OTHERWISE AMBULATES WITH SLOW AND STEADY GAIT. REQUIRES PROMPTING FROM STAFF FOR ADLS. TRANSFERS SELF INDEPENDENTLY. 1 ASSIST WITH SHOWERS. I-REORIENTED FREQUENTLY T/O THE SHIFT. REDIRECTED WHEN PT IS BEING INSTRUSIVE AND DISTRUPTIVE. LIMITING SETTING REQUIRED. R-PT RECEPTIVE TO REDIRECTION AND DIVERSIONAL ACTIVITIES. PARTICIPATING IN GROUP THERAPY AT THIS TIME. MEDICATION COMPLIANT WITHOUT DIFFICULTY. PLEASANT AND COOPERATIVE WITH STAFF. P-ENCOURAGE GROUPS, MAINTAIN LIMIT SETTING, Q15 MIN CHECKS
--- NOTE | 2018-11-22 10:50 | NUR ---
Clinical Updates faxed to [facility].
--- NOTE | 2018-11-22 12:13 | NUR ---
AM GROUP/EXERCISE/GAME/ART PT ATTENDED AND PARTICIPATED IN GROUP. PT PLEASANT AND ON TASK WITH NO AGITATION OR AGGRESSION DISPLAYED AT THIS TIME. PT WILL CONTINUE TO BE ENCOURAGED TO ATTEND AND PARTICIPATE IN FUTURE GROUP SESSIONS.
--- NOTE | 2018-11-22 18:39 | NUR ---
Shift chart check completed.
[2018-11-22 19:35] VITALS: BP 121/76
--- NOTE | 2018-11-22 23:18 | NUR ---
P- DEMANDING, INTRUSIVE WITH PEERS. PT PREOCCUPIED WITH ROOMMATE, TELLING THIS NURSE THAT "THAT SHE (ROOMMATE) NEEDS TO BE PUT ON OXYGEN AND GIVEN A BLANKET FOR HER SHOULDERS". PATIENT ALSO DEMANDING OF STAFF WITH VARIOUS REQUESTS AND WANTS. I- PT PROVIDED WITH 1:1 AND REDIRECTED WHEN PT IS BEING INTRUSIVE OF PEERS, PT INFORMED THAT THIS IS A HOSPITAL AND STAFF IS THE ONE THAT MANAGES CARE FOR HER ROOM MATE AND THAT SHE IS HERE TO FOCUS ON HERSELF AND CARE. PATIENT ALSO REDIRECTED WHEN BEING DEMANDING OF STAFF, LIMIT SETTING CONTINUED. R-PT RECEPTIVE OF REDIRECTION AND 1:1, VERBALIZED UNDERSTANDING. PT COOPERATIVE WITH STAFF, MEDICATION COMPLIANT WITHOUT DIFFICULTY. NO COMPLAINTS NOTED. P-MAINTAIN LIMIT SETTING. PROVIDE 1:1 AND REDIRECTED NEEDED. ENCOURAGE MEDICATION COMPLIANCE. Q 15 MIN CHECKS.
--- NOTE | 2018-11-23 06:12 | NUR ---
PATIENT OBSERVED ON Q 15 MIN CHECKS TO HAVE SLEPT APPROX 6 HOURS WITH X1 AWAKENING TO COME TO THE DINING ROOM FOR SNACK. NO SIGNS OR SYMPTOMS OF DISTRESS NOTED.
--- NOTE | 2018-11-23 06:25 | NUR ---
24 HOUR CHART CHECK COMPLETED.
[2018-11-23 08:32] VITALS: BP 122/64
--- NOTE | 2018-11-23 10:04 | NUR ---
P- ST/LT MEMORY DEFICITS NOTED INTERMITTENTLY THIS MORNING I-ASSESSED PATIENT FOR AGGRESSION, AGITATION, OR COMBATIVE BEHAVIORS. ASSESSED FOR SI/HI AND SENSORY DISTURBANCES. ASSESSED PT FOR ANY SIDE EFFECTS OR ADVERSE REACTIONS. REORIENTED FREQUENTLY T/O THE SHIFT AND PRN. R-PATIENT HAS BEEN ALERT AND ORIENTED THIS SHIFT. PLEASANT AND COOPERATIVE WITH STAFF. NO AGGRESSION, AGITATION, HALLUCINATIONS OR DEULUSIONS. CAN BE MILDLY INSTRUSIVE AND DISTUPTIVE INTO CONVERSATIONS AT TIMES. EASILY REDIRECTED. REORIENTATION MIN-MOD EFFECTIVE FOR MODERATE PERIODS OF TIME. P-CONTINUE TO ENCOURAGE GROUP ATTENDENCE AND PARTICIPATION. MONITOR MOOD AND BEHAVIOR FOR CHANGES.
--- NOTE | 2018-11-23 11:10 | NUR ---
ON UNIT AND MADE AWARE PT REFUSED LACTULOSE. NNO RECIEVED.
--- NOTE | 2018-11-23 12:09 | NUR ---
AM GROUP/EXERCISE AND BRAIN GAMES PT WAS IN AND OUT OF ACTIVITIES ROOM. PT SLEPT THROUGH THE EXERCISES AND WHEELED HERSELF OUT. PT RETURNED WHEN GROUP WAS ALMOST OVER AND DEMANDED CRAYONS. PT WAS INTRUSIVE AND OBLIVIOUS TO THE GROUP BEING IN THE MIDDLE OF AN ACTIVITY. PT WAS REDIRECTED. PT EXHIBITED NO AGGRESSION DURING GROUP BUT WAS AGITATED TO WAIT FOR HER DEMANDS TO BE MET.
--- NOTE | 2018-11-23 12:43 | NUR ---
Shift chart check completed.
--- NOTE | 2018-11-23 15:50 | NUR ---
PM GROUP/LEISURE INTERESTS PT ATTENDED GROUP AND WORKED ON COLORING WITH MARKERS. PT ALSO HAD OLD NAIL ARMENIAN ON THAT WE REMOVED. PT WAS TALKATIVE AND LESS INTRUSIVE AND DEMANDING THIS AFTERNOON. PT EXHIBITED NO AGITATION OR AGGRESSION DURING GROUP
--- NOTE | 2018-11-23 18:32 | NUR ---
Shift chart check completed.
[2018-11-23 20:10] VITALS: BP 118/62
--- NOTE | 2018-11-23 21:50 | NUR ---
Patient is alert and oriented this shift. No ST/LT memory deficits noted. No HI/SI noted. No aggression,agitation,hallucinations,or delusions noted at this time. Mildly intrusive and disruptive at times but easily redirected. Patient compliant with medications without difficulty. Q 15 minute safety checks continued and maintained.
--- NOTE | 2018-11-24 00:15 | NUR ---
24 HR chart check completed.
--- NOTE | 2018-11-24 05:51 | NUR ---
Patient slept approx.5 hours throughout shift.
[2018-11-24 07:31] VITALS: BP 122/67
--- NOTE | 2018-11-24 12:39 | NUR ---
PATIENT IS ALERT AND ORIENT TO PERSON, PLACE, TIME AND SITUATION; ABLE TO VOICE NEEDS. MOOD IS STABLE, PLEASANT, CALM DEMEANOR. DENIES ANY HALLUCINATIONS, DELUSIONS, HI/SI OR PAIN. NO OUTBURST NOTED SO FAR TODAY. INTERACTIVE WITH STAFF. VERBAL CUEING WITH ACTIVITIES OF DAILY LIVING, CONTINENT OF BOWEL AND BLADDER. SET UP FOR MEALS, INTAKES ARE GOOD WITH ADEQUATE FLUIDS. PATIENT SELF PROPELS IN WHEELCHAIR. PATIENT IN HALLWAY LAUGHING, NO DISTRESS OBSERVED. MEDICATION COMPLAINT. Q 15 MINUTE SAFETY CHECKS. CONTINUE TO MONITOR FOR AGGRESSION AND MEDICATION COMPLIANCE; PROVIDE ONE ON ONE AND REDIRECTION NEEDED.
--- NOTE | 2018-11-24 13:02 | NUR ---
MESSAGE LEFT FOR FATHER AT [facility] D/T PT REQUESTING COMMUNION.
--- NOTE | 2018-11-24 15:41 | NUR ---
Shift chart check completed.
--- NOTE | 2018-11-24 16:22 | NUR ---
PM GROUP/EXERCISES/ART/DAILY POSITIVITY PT ATTENDED AND PARTICIPATED DURING GROUP. PT PLEASANT AND ON TASK WITH NO AGITATION OR AGGRESSION AT THIS TIME. PT WILL CONTINUE TO ATTEND AND PARTICIPATE IN FUTURE GROUP SESSIONS.
[2018-11-24 20:00] VITALS: BP 128/70
--- NOTE | 2018-11-24 23:00 | NUR ---
P-MEDICATION COMPLIANCE AND AGITATED. PATIENT ALERT AND ORIENTED. PATIENT WITH NO HALLCINATIONS OR DELUSIONS. PATIENT WITH SUICIDAL OR HOMICIDAL IDEATIONS. PATIENT AGITATED ABOUT TAKING MEDICATIONS AT HS. I-REDIRECTION WITH 1:1 INTERVENTIONS AND PRESENT REALITY ORIENTATION. EDCUATED AND ENCOURAGE MEDICATION COMPLIANCE. DISCUSS COPING SKILLS FOR EPISODES OF AGITATION. R-REDIRECTION WITH 1:1 INTERVENTIONS AND PRESENTTING REALITY INEFFCTIVE AT THIS TIME. PATIENT MEDICATION COMPLIANT WITH DIFFICULTY WITH HS MEDICATIONS. PATIENT PROVIDED NOURISHMENT, FLUIDS, AND TOILETING. PATIENT VERBALIZED BEING UPSET DUE TO BEING TIRED. PATIENT RESTING IN BED AT THIS TIME WITH NO MORE EPISODES OF AGITATION AT THIS TIME R-CONTINUE MEDICATION COMPLIANCE, CONTINUE REALTIY PRESENTATION, ENCOURAGE GROUP THERAPY WHILE AWAKE
--- NOTE | 2018-11-25 00:15 | NUR ---
24 HR chart check completed.
--- NOTE | 2018-11-25 05:42 | NUR ---
PATIENT SLEPT >8 HOURS INTERRRUPTED THROUGHOUT THE SHIFT. Q 15 MINUTE CHECKS MAINTAINED
[2018-11-25 07:56] VITALS: BP 119/70
--- NOTE | 2018-11-25 08:15 | NUR ---
Treatment Plan meeting with Dr. Hardy, RN, AT and Account Installation Specialist. Plan for discharge at the end of the week.
--- NOTE | 2018-11-25 11:48 | NUR ---
AM GROUP/EXERCISES/GAME PT ATTENDED AND PARTICIPATE ENTIRE GROUP. PT PLEASANT AND ON TASK. PT DID NOT BECOME AGGRESSIVE OR AGITATED AT THIS TIME. PT WILL CONTINUE TO ATTEND AND PARTICIPATE IN FUTURE GROUP SESSIONS.
--- NOTE | 2018-11-25 15:53 | NUR ---
PM GROUP/LEISURE ACTIVITY'S PT ATTENDED AND PARTICIPATED IN GROUP. PT DID BECOME AGITATED WITH ANOTHER STAFF BUT WAS REDIRECTED AND DID NOT BECOME AGGRESSIVE. PT BACK ON TASK THE REST OF GROUP. PT WILL CONTINUE TO BE ENCOURAGED TO ATTEND AND PARTICIPATE IN FUTURE GROUP SESSIONS.
--- NOTE | 2018-11-25 16:52 | NUR ---
PATIENT IS ALERT AND ORIENTED TO PERSON, PLACE, TIME AND SITUIATION; ABLE TO VOICE NEEDS. MOOD IS IRRITABLE AND DEMANDING AT TIMES. DENIES ANY HALLUCINATIONS, DELUSIONS, HI/SI OR PAIN. PATIENT IS PREOCCUPIED WITH ROOMMATES SWEATER THIS MORNING. PATIENT REDIRECTABLE AND EFFECTIVE. MEDICATION COMPLAINT WITH EDUCATION PROVIDED. Q 15 MINUTE SAFETY CHECKS MAINTAINED. SET UP FOR ACTIVITIES OF DAILY LIVING, CONTINENT OF BOWEL AND BLADDER WITH EPISODES OF BLADDER INCONTINENCE. PATIENT INTERACTIVE WITH STAFF AND PARTICIPATED IN AFTERNOON GROUP SESSSION. PATIENT IS AMBULATORY WITH STEADY GAIT AND USES WHEELCHAIR, SELF PROPELS ON UNIT, NO DIFFICULTIES. CONTINUE TO MONITOR FOR MEDICAITON REFUSAL, AGGRESSION WITH STAFF AND PEERS. NO AGGRESSSIONS OR OUTBURST NOTED. P: PREOCCUPIED WITH ROOMMATE'S SWEATER I: REDIRECTED, ASSISTED WITH VERBAL CUEING TO DIRECT PATIENT TO PUT ROOMMATE SWEATER IN CLOSET. R: RECEPTIVE AND EFFECTIVE P: CONTINUE TO PROVIDE REDIRECTION, ONE ON ONE NEEDED, MONITOR MEDICATION COMPLIANCE AND AGGRESSION.
[2018-11-25 20:05] VITALS: BP 144/59
--- NOTE | 2018-11-25 22:49 | NUR ---
24 HR chart check completed.
--- NOTE | 2018-11-26 00:45 | NUR ---
P: MEDICATION COMPLIANCE AND AGGRESSION. PATIENT IS ORIENTED TO PERSON, PLACE AND TIME. NO SI/HI OR PAIN NOTED. IS INTERACIVE BUT ONLY WITH YES /NO QUESTIONS, DOES NOT INITIATE OR DESIRE CONVERSATION. DID TAKE HS MEDICATION. I: ENCOURAGED INTERACTION AND MED COMPLIANCE. R: PATIENT DID NOT WANT TO INTERACT WITH STAFF. TOOK HS MEDS AND WANTED TO GO TO SLEEP. P: CONTINUE TO ENCOURAGE PLEASANT INTERACTION WITH STAFF AND MED COMPLIANCE.
--- NOTE | 2018-11-26 05:34 | NUR ---
PATIENT SLEPT BETWEEN 4-5 HOURS. WENT TO BED AROUND 8PM AND WAS AWAKE AROUND 4 AM. SITTING IN WHEEL CHAIR AT BEDSIDE
[2018-11-26 07:55] VITALS: BP 119/65
--- NOTE | 2018-11-26 08:00 | NUR ---
Treatment Plan meeting with Dr. Hardy, RN, AT and Pooling Operator. Plan for discharge Wed.
--- NOTE | 2018-11-26 11:20 | NUR ---
Updated PASRR received. Pt. Denied Nursing Facility Services. Call placed to [facility] and spoke with Dunia Barney the Equal Opportunity Counselor. She will file appeal with [facility] upon patient return to facility and has been working with patient prior to admission to [facility].
--- NOTE | 2018-11-26 11:40 | NUR ---
DR. VALLECILLO ON FLOOR TO ASSESS PATIENT.
--- NOTE | 2018-11-26 11:50 | NUR ---
P: PREOCCUPIED WITH PATIENTS JACKET. ASKING PEER TO PUT ON JACKET AND TAKE OFF THE JACKET. EASILY IRRITABLE. I: REASSURED PATIENT THAT IF HER PEER WANTED HER JACKET AT THIS TIME SHE WOULD PUT IT ON. PEER WAS TRYING TO TAKE A NAP AT THIS TIME, TOLD PATIENT TO ASK HER PEER WHEN THEY WOKE UP IF SHE WOULD LIKE HER JACKET. ENCOURAGED PATIENT PERSONAL SPACE AND TO COME TO STAFF FIRST. ENCOURAGED PATIENT TO JOIN GROUP AND ACTIVITIES TO KEEP BUSY. RELAXATION TECHNIQUES OFFERED WHEN PATIENT BECAME IRRITABLE. 1:1 INTERACTION WITH EMOTIONAL SUPPORT PROVIDED. MEDICATIONS PROVIDED WITH EDUCATION. R: PATIENT WOULD GET IRRITABLE WHEN TOLD TO LET THE PATIENT REST. PATIENT LEFT PEER ALONE WHEN STAFF TOLD HER ABOUT PERSONAL SPACE AND THAT PEER WAS TRYING TO SLEEP. ENGAGED IN CONVERSATION WITH THIS NURSE AND STATED THAT SHE WAS JUST TRYING TO HELP. PATIENT STATED "ALRIGHT, I WILL" WHEN ENCOURAGED TO LET STAFF KNOW BEFORE GOING TO PEERS. PATIENT PARTICIPATING IN GROUP AND INTERACTING WITH STAFF AND PEERS. MEDICATION COMPLIANT WITH NO DIFFICULTIES. PATIENT ENJOYS COLORING. P: CONTINUE TO REMIND PATIENT OF PERSONAL SPACE. ENCOURAGE TO PARTICIPATE IN GROUP ACTIVITIES AND INTERACTION. REMIND PATIENT TO COME TO STAFF BEFORE GOING TO A PEER ABOUT ADLS. PROVIDE MEDICATIONS AND THERAPIES PRESCRIBED BY PHYSICIAN. Q15 MINUTE CHECKS MAINTAINED FOR SAFETY. PROVIDE 1:1 WITH EMOTIONAL SUPPORT WHEN NECESSARY. PROVIDE ACTIVITIES FREQUENTLY. FALLING STAR PROGRAM MAINTAINED.
--- NOTE | 2018-11-26 11:55 | NUR ---
AM GROUP/EXERCISE AND ART PT WAS LATE TO MORNING GROUP AND DID NOT PARTICIPATE IN THE EXERCISES. PT WORKED ON SOME ART FOR A WHILE AND THEN LAID HEAD ON TABLE AND SLEPT. PT EXHIBITED NO AGITATION OR AGGRESSION WHILE IN GROUP
--- NOTE | 2018-11-26 12:41 | NUR ---
Shift chart check completed.
--- NOTE | 2018-11-26 15:38 | NUR ---
PM GROUP/STRESS REDUCTION PT ATTENDED AND PARTICIPATED IN ALL GROUP ACTIVITIES. PT WAS QUIET AND FOCUSED ON TASK. PT EXHIBITED NO AGITATION OR AGGRESSION DURING GROUP
[2018-11-26 20:00] VITALS: BP 127/74; BP 136/86
--- NOTE | 2018-11-26 23:09 | NUR ---
P-CONFUSION I-REDIRECT AND PROVIDE 1:1 FOR EMOTIONAL SUPPORT. ENCOURAGE MEDICATION COMPLIANCE. REORIENT WHEN NECESSARY. R-PATIENT REDIRECTS EASILY. MEDICATION COMPLIANT WITHOUT ANY DIFFICULTIES. Q 15 MINUTE SAFETY CHECKS CONTINUED AND MAINTAINED. P-REDIRECT AND REORIENT WHEN NEEDED. ENCOURAGE MEDICATION COMPLIANCE. CONTINUE TO MAINTAIN Q 15 MINUTE SAFETY CHECKS.
--- NOTE | 2018-11-27 00:28 | NUR ---
24 HR chart check completed.
--- NOTE | 2018-11-27 05:39 | NUR ---
Patient slept approx. 8 hours throughout shift.
[2018-11-27 08:26] VITALS: BP 110/65
[2018-11-27 08:38] VITALS: BP 110/65
[2018-11-27 10:02] VITALS: BP 110/65
--- NOTE | 2018-11-27 11:30 | NUR ---
AND ON UNIT TO ASSESS PT. NNO RECIEVED.
--- NOTE | 2018-11-27 11:56 | NUR ---
Discussed barriers with nursing facility and plan to discharge pt tomorrow back to [place].
--- NOTE | 2018-11-27 12:01 | NUR ---
AM GROUP/EXERCISE AND BALL TOSS PT WAS IN AND OUT OF GROUP AND ASKED TO WORK ON ART IN QUIET ROOM. PT REMAINED IN QUIET ROOM ON TASK UNTIL LUNCH. PT EXHIBITED NO AGITATION OR AGGRESSION DURING GROUP.
--- NOTE | 2018-11-27 16:44 | NUR ---
Met with pt per request and attempted to explain the PASSR rights form that facility faxed party planner as pt declined for party planner. This teletypewriter installer attempted and Pt stated no she is not signing it and understands her right to appeal but heard from Ethan at [facility] that she is not taking her back so she is going to live with her kids. The pt was talking to her daughter and when this teletypewriter installer asked if she would participate in a 3 way conference call to discuss as pt did not seem to understand; pt declined. Pt stated the daughter could call this teletypewriter installer and provided daughter this teletypewriter installer's cell phone number. Called Ethan at [phone] and provided updates as pt was declining to sign whether she agreed or disagreed with determination. Explained to pt that it was for any facility. Asked STEFFANY if she could provide any other strategies and reach out to the family to see if they are indeed considering caregiving for pt or to assist in explaining the form given to [facility] for pts review. This teletypewriter installer also indicated pt may be overwhelmed as STEFFANY and another rep from facility just visited pt, then party planner tried, and now this teletypewriter installer so maybe pt is overwhelmed. STEFFANY stated she wanted to talk to pt and pt declined to talk with her via phone. STEFFANY stated she will have another staff attempt to call pt and they can see about checking in with the family. Saw pt later who appeared calm and checked in with pt who stated she told her daughter to no longer call this teletypewriter installer. Updated party planner regarding outcome of attempts.
--- NOTE | 2018-11-27 17:33 | NUR ---
P-PT ALERT VERBAL. ABLE TO MAKE NEEDS AND WANTS KNOWN TO STAFF. ST/LT MEMORY DEFICITS AND PERIODS OF CONFUSION NOTED. PT VOICING DELUSIONS REGARDING HER HOSPITAL IDENTIFICATION BRACELET THAT THERE SHOULD BE A "G" IN THE MIDDLE. I-REORIENTED AND REALITY PRESENTATED NEEDED THROUGHOUT THE DAY. REDIRECTION INTERMITTENTLTY. ASSESSED PT FOR SI/HI, SENSORY DISTURBANCES, AGGRESSION AND AGITATION. R-PT HAS BEEN PLEASANT AND COOPERATIVE THIS SHIFT. MEDICATION COMPLIANT WITH MINIMAL ENCOURAGEMENT. EASILY REDIRECTABLE. DISMISSES STAFF AND ATTEMPTS TO TALK OVER STAFF DURING REALITY PRESENTATION. PROPELS SELF INDEPENDENTLY IN W/C WITHOUT DIFFICULTY. STANDBY ASSIST FOR TRANSFERS. APPETITE GOOD FOR MEALS. P-CONTINUE CURRENT TX PLAN, REORIENT AND REDIRECT NEEDED, CONTINUE TO ENCOURAGE GROUPS ATTENDENCE AND PARTICIPATION.
--- NOTE | 2018-11-27 18:14 | NUR ---
SHIFT CHART CHECK COMPLETED.
[2018-11-27 19:47] VITALS: BP 112/66
--- NOTE | 2018-11-27 20:39 | NUR ---
24 HR chart check completed.
--- NOTE | 2018-11-28 01:50 | NUR ---
MOOD IS STABLE. PT HAS RESTED IN THE DINING ROOM WITH HER HEAD ON THE TABLE. KEEPS TO HERSELF. 1:1 PROVIDED FOR EMOTIONAL SUPPORT. ABLE TO EXPRESS HER NEEDS. MOVES SELF IN A WHEELCHAIR & ASSISTS HERSELF TO THE BATHROOM. HS BEDSIDE GLUCOSE 243. COMPLIANT WITH HS MEDICATIONS.
--- NOTE | 2018-11-28 05:36 | NUR ---
PT HAS SLEPT PAST 2099.
--- NOTE | 2018-11-28 06:44 | NUR ---
AM BEDSIDE GLUCOSE 141
[2018-11-28 07:15] VITALS: BP 126/68
--- NOTE | 2018-11-28 08:15 | NUR ---
Treatment Plan meeting with Dr. Hardy, RN, AT, SW and Well Driller. Plan for discharge today. Pt. to return to [facility] and transition tommorow to [facility].
[2018-11-28] MEDS ORDERED: INVEGA SUSTENN234 MG IM (10:16)
[2018-11-28] MEDS ORDERED: RIVASTIGMINE TAR3 M1 PO (10:16)
[2018-11-28] MEDS ORDERED: MEMANTINE HCL10 MG PO (10:16)
[2018-11-28] MEDS ORDERED: LACTULOSE20 GM/30 M PO (10:17)
--- NOTE | 2018-11-28 11:59 | NUR ---
AM GROUP/MORNING MEDITATION PT WAS PRESENT FOR THE START OF MORNING GROUP THERAPY BUT CHOSE TO LEAVE AND DID NOT RETURN. PT IS READYING TO BE DISCHARGED FROM THE UNIT SOMETIME TODAY.
--- NOTE | 2018-11-28 12:54 | NUR ---
PT HAS BEEN PLEASANT AND COOPERATIVE WITH STAFF THIS SHIFT. MEDICATION COMPLIANT WITHOUT DIFFICULTY. REQUESTING STAFF BRING HER VARIOUS NON-ESSENTIAL ITEMS. PT REDIRECTED DURING THESE TIMES. SMILING AND JOKING APPROPRIATELY WITH THIS RN. CAN BE VERBALLY INTRUSIVE WITH STAFF BUT DIVERSIONAL ACTIVITIES ARE EFFECTIVE. APPETITE GOOD FOR MEALS. DENIES SI/HI, HALLUCINATIONS, AND DELUSIONS AND NO SENSORY DISTURBANCES ARE NOTED. Q15 MIN CHECKS PER OBERSVATION ORDERS.
--- NOTE | 2018-11-28 14:30 | NUR ---
Discharge instructions reviewed with patient/facility. Patient receptive and verbalizes understanding. Follow-up care arranged. Written instructions given to patient/facility. Pt refused to sign certain discharge papers.
--- NOTE | 2018-11-28 15:04 | NUR ---
NURSE TO NURSE GIVEN TO [facility] AT THIS TIME. REVIEWED [facility] AND [facility] AND [facility] SCHEDULED DATES. ALL QUESTIONS ANWSERED. GIVEN [facility] PH NUMBER TO CALL WITH ANY QUESTIONS.
--- NOTE | 2018-11-28 15:44 | NUR ---
PM GROUP/INTERPERSONAL INTERACTIONS PT DID NOT ATTEND AFTERNOON GROUP THERAPY. PT IS ANXIOUSLY AWAITING DISCHARGE FROM THE UNIT
--- NOTE | 2018-11-28 16:04 | NUR ---
Discharge Packet faxed to [facility] Attn: Ella.
--- NOTE | 2018-11-28 16:40 | NUR ---
PT DISCHARGED AT THIS TIME BACK TO [facility] AT THIS TIME. LOCKBOX ITEMS SENT WITH PATIENT WELL.
[2019-03-24] MEDS ORDERED: GLUCOSE GEL38 GM PO (18:26)
[2019-03-24] MEDS ORDERED: TRAMADOL HCL50 MG PO (18:43)
[2019-04-04] MEDS ORDERED: OXCARBAZEPINE600 MG PO (09:34)
[2019-04-04] MEDS ORDERED: CLONAZEPAM1 MG PO (09:34)
[2019-04-04] MEDS ORDERED: INVEGA SUSTENN234 MG IM (09:34)
[2019-04-04] MEDS ORDERED: HALOPERIDO100 MG/1 M IM (09:34)
== END 2018-11-28 17:25 | DRG 885 ==
LOC: ED 14:26 → 3N 17:33
PROVIDERS: Emergency Medicine; ADMIT Psychiatry & Neurology Psychiatry
DX: F25.0 Schizoaffective disorder, bipolar type (principal); N30.00 Acute cystitis without hematuria; E87.8 Other disorders of electrolyte and fluid balance, not elsewhere classified; F31.9 Bipolar disorder, unspecified; I10 Essential (primary) hypertension; E78.5 Hyperlipidemia, unspecified; E11.9 Type 2 diabetes mellitus without complications; F01.50 Vascular dementia, unspecified severity, without behavioral disturbance, psychotic disturbance, mood disturbance, and anxiety; F17.200 Nicotine dependence, unspecified, uncomplicated; L85.3 Xerosis cutis; D72.810 Lymphocytopenia; K59.00 Constipation, unspecified; R26.2 Difficulty in walking, not elsewhere classified; K74.60 Unspecified cirrhosis of liver; M81.0 Age-related osteoporosis without current pathological fracture; D50.9 Iron deficiency anemia, unspecified; Z88.0 Allergy status to penicillin; Z79.4 Long term (current) use of insulin; Z90.49 Acquired absence of other specified parts of digestive tract; Z98.51 Tubal ligation status; Z83.3 Family history of diabetes mellitus; Z88.5 Allergy status to narcotic agent; Z91.018 Allergy to other foods